=== PATIENT | female | born 1945 | race African-American/Black ===

== ENCOUNTER → 2017-02-27 13:07 | Outpatient (CLI) | payer MEDICARE | END | disposition home or self-care (01) | LOC: D.CT 13:07 | DX: D72.829 Elevated white blood cell count, unspecified (principal) ==

== ENCOUNTER 2017-03-06 20:01 | Emergency (ER) | payer MEDICARE ==
[2017-03-06 21:13] LABS: BASOPHILS 0.1 % (0-2); EOSINOPHILS 0.2 % (0-7); HEMATOCRIT 34.1 % (36.0-48.0); HEMOGLOBIN 10.4 g/dL (12-16); IMMATURE GRANULOCYTES 0.6 % (0-5); LYMPHOCYTES 11.8 % (15-50); MCH 22.3 pg (26.0-34.0); MCHC 30.5 g/dL (31.0-37.0); MCV 73.2 fL (80.0-100.0); MEAN PLATELET VOLUME 8.8 fL (7.4-10.4); MONOCYTES 5.5 % (2-11); NEUTROPHILS 81.8 % (40-80); PLATELET COUNT 438 10x3/uL (130-400); RBC 4.66 10x6/uL (4.00-5.40); RDW 16.8 % (11.5-14.5)
[2017-03-06 21:19] LABS: APTT 25.7 SECONDS (22.8-39.4)
[2017-03-06 21:25] LABS: ALBUMIN 3.5 g/dL (3.4-5.0); ANION GAP 14.3 mmol/L (8-16); BILIRUBIN - TOTAL 0.21 mg/dL (0.2-1.3); CALCIUM 9.2 mg/dL (8.5-10.1); CARBON DIOXIDE 29.9 mmol/L (21.0-32.0); CREATININE - SERUM 1.3 mg/dL (0.6-1.3); POTASSIUM - SERUM 3.2 mmol/L (3.5-5.1)
[2017-03-06 21:44] LABS: INR 0.98 (0.85-1.17); PROTIME 12.8 SECONDS (11.6-15.0)
== END 2017-03-06 22:20 | disposition home or self-care (01) ==
LOC: D.ER 20:01
PROVIDERS: Emergency Medicine
DX: R19.7 Diarrhea, unspecified (principal); T50.905A Adverse effect of unspecified drugs, medicaments and biological substances, initial encounter; Y92.89 Other specified places as the place of occurrence of the external cause; J06.9 Acute upper respiratory infection, unspecified; I10 Essential (primary) hypertension; C50.919 Malignant neoplasm of unspecified site of unspecified female breast; C67.9 Malignant neoplasm of bladder, unspecified; J44.9 Chronic obstructive pulmonary disease, unspecified; C34.90 Malignant neoplasm of unspecified part of unspecified bronchus or lung

== ENCOUNTER → 2017-07-04 15:18 | Outpatient (CLI) | payer MEDICARE | END | disposition home or self-care (01) | LOC: D.CT 07-03 13:30 | DX: R91.8 Other nonspecific abnormal finding of lung field (principal) ==

== ENCOUNTER → 2019-04-01 13:13 | Outpatient (CLI) | payer MEDICARE | END | disposition home or self-care (01) | LOC: D.RT 13:13 | PROVIDERS: ATTEND Internal Medicine Pulmonary Disease | DX: J44.9 Chronic obstructive pulmonary disease, unspecified (principal) ==

== ENCOUNTER 2019-08-27 09:48 | Emergency (ER) | payer MEDICARE ==
[~2019-08-27] VITALS: Ht 167.6 cm; Wt 98.2 kg
[2019-08-27 09:59] VITALS: Ht 167.6 cm; Wt 98.2 kg
[2019-08-27] MEDS ORDERED: TENORMIN50 MG PO (10:00)
[2019-08-27] MEDS ORDERED: ESTRACE 0.5 MG0.5 MG PO (10:01)
[2019-08-27] MEDS ORDERED: COZAAR25 MG PO (10:01)
[2019-08-27] MEDS ORDERED: TEGRETOL200 MG PO (10:01)
[2019-08-27 10:39] LABS: BASOPHILS 0.1 % (0-2); EOSINOPHILS 3.1 % (0-7); HEMATOCRIT 42.3 % (36.0-48.0); HEMOGLOBIN 13.7 g/dL (12-16); IMMATURE GRANULOCYTES 0.3 % (0-5); LYMPHOCYTES 7.9 % (15-50); MCH 28.2 pg (26.0-34.0); MCHC 32.4 g/dL (31.0-37.0); MCV 87.2 fL (80.0-100.0); MEAN PLATELET VOLUME 8.9 fL (7.4-10.4); MONOCYTES 6.1 % (2-11); NEUTROPHILS 82.5 % (40-80); RBC 4.85 10x6/uL (4.00-5.40); WBC 15.4 10x3/uL (4.8-10.8)
[2019-08-27 10:44] LABS: PLATELET COUNT 289 10x3/uL (130-400)
[2019-08-27 10:46] LABS: ANION GAP 13.8 mmol/L (8-16); CALCIUM 8.9 mg/dL (8.5-10.1); CARBON DIOXIDE 28.2 mmol/L (21.0-32.0); CREATININE - SERUM 0.9 mg/dL (0.6-1.3)
[2019-08-27 10:54] LABS: ALBUMIN 3.2 g/dL (3.4-5.0); BILIRUBIN - TOTAL 0.39 mg/dL (0.2-1.3); PROTEIN - SERUM 7.4 g/dL (6.4-8.2)
[2019-08-27 11:36] VITALS: BP 145/68
== END 2019-08-27 11:36 | disposition home or self-care (01) ==
LOC: D.ER 09:48
PROVIDERS: Family Medicine
DX: I10 Essential (primary) hypertension (principal); G50.0 Trigeminal neuralgia; J44.9 Chronic obstructive pulmonary disease, unspecified

== ENCOUNTER → 2019-09-10 10:16 | Outpatient (CLI) | payer MEDICARE ==
[2019-08-27 09:59] VITALS: BMI 34.9
[~2019-09-10 10:16] MED LIST: COZAAR25 MG PO; ESTRACE 0.5 MG0.5 MG PO; TEGRETOL200 MG PO; TENORMIN50 MG PO
== END | disposition home or self-care (01) ==
LOC: D.CT 10:16
PROVIDERS: ATTEND Internal Medicine Pulmonary Disease
DX: R91.8 Other nonspecific abnormal finding of lung field (principal)

== ENCOUNTER → 2019-09-18 17:37 | Outpatient (CLI) | payer MEDICARE ==
[2019-08-27 09:59] VITALS: BMI 34.9
== END | disposition home or self-care (01) ==
LOC: D.LABREF 17:37
PROVIDERS: ATTEND Urology
DX: R82.90 Unspecified abnormal findings in urine (principal); R31.9 Hematuria, unspecified

== ENCOUNTER → 2019-10-11 14:03 | Outpatient (CLI) | payer OTHER ==
[2019-08-27 09:59] VITALS: BMI 34.9
== END | disposition home or self-care (01) ==
LOC: D.CT 14:03
PROVIDERS: ATTEND Urology
DX: R31.9 Hematuria, unspecified (principal); Z53.9 Procedure and treatment not carried out, unspecified reason

== ENCOUNTER → 2020-06-26 14:48 | Outpatient (CLI) | payer MEDICARE ==
[2019-08-27 09:59] VITALS: BMI 34.9
== END | disposition home or self-care (01) ==
LOC: D.CT 14:48
PROVIDERS: ATTEND Internal Medicine Pulmonary Disease
DX: R19.00 Intra-abdominal and pelvic swelling, mass and lump, unspecified site (principal)

== ENCOUNTER 2021-01-25 14:45 | Inpatient (IN) | payer MEDICARE ==
[~2021-01-25] VITALS: Ht 167.6 cm; Wt 81.6 kg
[2021-01-25] MEDS ORDERED: NORVASC10 MG PO (15:11)
[2021-01-25 15:38] LABS: BASOPHILS 0.1 % (0-2); EOSINOPHILS 1.3 % (0-7); HEMATOCRIT 41.5 % (36.0-48.0); HEMOGLOBIN 13.6 g/dL (12-16); IMMATURE GRANULOCYTES 0.8 % (0-5); LYMPHOCYTE ABS# 1.69 10x3/uL (1.18-3.74); LYMPHOCYTES 10.1 % (15-50); MCH 27.9 pg (26.0-34.0); MCHC 32.8 g/dL (31.0-37.0); MCV 85.2 fL (80.0-100.0); MEAN PLATELET VOLUME 8.8 fL (7.4-10.4); MONOCYTES 7.7 % (2-11); NEUTROPHIL ABS# 13.37 10x3/uL (1.56-6.13); RBC 4.87 10x6/uL (4.00-5.40); RDW 13.4 % (11.5-14.5); WBC 16.7 10x3/uL (4.8-10.8)
[2021-01-25 15:39] LABS: BILIRUBIN NEGATIVE (NEGATIVE); KETONE NEGATIVE (NEGATIVE); NITRITE NEGATIVE (NEGATIVE); UROBILINOGEN NORMAL mg/dL (< 2)
[2021-01-25 15:39] LABS: PLATELET COUNT 418 10x3/uL (130-400)
[2021-01-25 15:43] LABS: WHITE CELLS - URINE >50 HPF (0-4)
[2021-01-25 15:44] LABS: BACTERIA MODERATE HPF (NONE SEEN); SQUAMOUS EPITHELIAL 0-5 HPF (0-4)
[2021-01-25 15:54] LABS: APTT 28.8 SECONDS (22.8-39.4); INR 1.13 (0.85-1.17); PROTIME 13.4 SECONDS (11.6-15.0)
[2021-01-25 15:55] LABS: CALC OSMOLALITY 280 mosm/kg (275-300); CALCIUM 9.6 mg/dL (8.5-10.1); CARBON DIOXIDE 27.5 mmol/L (21.0-32.0); CHLORIDE - SERUM 102 mmol/L (98-107); GLUCOSE 86 mg/dL (74-106); POTASSIUM - SERUM 3.4 mmol/L (3.5-5.1); SODIUM 141 mmol/L (136-145); UREA NITROGEN 16 mg/dL (7-18); eGFR NON AFRICAN AMERICAN 57 mL/min (90-120)
[2021-01-25 16:00] VITALS: BP 147/68
[2021-01-25 16:03] LABS: ALBUMIN 3.3 g/dL (3.4-5.0); ALKALINE PHOSPHATASE 128 U/L (30-120); ALT (SGPT) 14 U/L (10-68); AMYLASE - SERUM 50 U/L (25-115); LIPASE 57 U/L (73-393); PROTEIN - SERUM 7.5 g/dL (6.4-8.2)
[2021-01-25 16:08] LABS: TROPONIN-I < 0.017 ng/mL (0.000-0.060)
[2021-01-25 17:00] VITALS: BP 119/50
[2021-01-25 17:30] VITALS: BP 112/54
--- NOTE | 2021-01-25 19:00 | NUR ---
REPORT TO ONCOMING SHIFT.
[2021-01-25 19:27] VITALS: BP 131/55
[2021-01-25 21:27] VITALS: BP 124/42
[2021-01-25] MEDS ORDERED: PROVENTIL/2.5 MG/3 M INH (22:46)
[2021-01-25] MEDS ORDERED: PULMICORT0.5 MG/21 INH (22:47)
[2021-01-25] MEDS ORDERED: ALBUTEROL SULF8.5 GM INH (22:48)
[2021-01-25] MEDS ORDERED: NEURONTIN 300300 MG PO (22:49)
[2021-01-26 00:55] VITALS: BP 155/65; BMI 29.1
[2021-01-26 05:46] LABS: BASOPHILS 0.1 % (0-2); EOSINOPHILS 1.2 % (0-7); HEMATOCRIT 35.7 % (36.0-48.0); HEMOGLOBIN 11.6 g/dL (12-16); IMMATURE GRANULOCYTES 0.3 % (0-5); LYMPHOCYTE ABS# 1.06 10x3/uL (1.18-3.74); LYMPHOCYTES 7.4 % (15-50); MCH 27.6 pg (26.0-34.0); MCHC 32.5 g/dL (31.0-37.0); MCV 84.8 fL (80.0-100.0); MEAN PLATELET VOLUME 8.4 fL (7.4-10.4); MONOCYTES 6.6 % (2-11); NEUTROPHIL ABS# 12.16 10x3/uL (1.56-6.13); NEUTROPHILS 84.4 % (40-80); RBC 4.21 10x6/uL (4.00-5.40); RDW 13.5 % (11.5-14.5); WBC 14.4 10x3/uL (4.8-10.8)
[2021-01-26 06:00] LABS: PLATELET COUNT 307 10x3/uL (130-400)
[2021-01-26 06:19] LABS: ALBUMIN 2.6 g/dL (3.4-5.0); ALKALINE PHOSPHATASE 177 U/L (30-120); BILIRUBIN - TOTAL 0.38 mg/dL (0.2-1.3); CALC OSMOLALITY 277 mosm/kg (275-300); CALCIUM 8.6 mg/dL (8.5-10.1); CARBON DIOXIDE 23.2 mmol/L (21.0-32.0); CHLORIDE - SERUM 105 mmol/L (98-107); GLUCOSE 78 mg/dL (74-106); PROTEIN - SERUM 6.2 g/dL (6.4-8.2); SODIUM 140 mmol/L (136-145); UREA NITROGEN 12 mg/dL (7-18)
[2021-01-26 06:20] LABS: ALT (SGPT) 21 U/L (10-68); CREATININE - SERUM 0.7 mg/dL (0.6-1.3); eGFR NON AFRICAN AMERICAN 86 mL/min (90-120)
[2021-01-26 08:19] VITALS: BP 95/62
[2021-01-26 09:22] VITALS: BP 138/81
--- NOTE | 2021-01-26 09:45 | NUR ---
PT RECEIVED AWAKE SITTING ON SIDE OF BED. MEDS GIVEN WITH SIP. PRODUCT ENGINEER FOR PAIN. DENIES NAUSEA.
[2021-01-26 13:24] VITALS: BP 117/63
[2021-01-26 14:02] VITALS: BMI 29.0
--- NOTE | 2021-01-26 14:30 | CN ---
PATIENT NAME:ZOILA FLOYD MEDICAL RECORD: [id number] : 45 LOCATION:D.M2 D.2127 ADMIT DATE: 01/25/21 ACCOUNT: [id number] CONSULTING PHYSICIAN: CATE MCCOLLUM MD REFERRING PHYSICIAN: ANKUR FREEDMAN MD DATE OF CONSULTATION: 01/25/2021 CHIEF COMPLAINT: Abdominal pain. HISTORY OF PRESENT ILLNESS: The patient has been seen by my surgery group in the past. I do not know who saw her, but she was referred to [facility]. She has seen a surgeon there, who is following her for a large left-sided abdominal mass, which appears to contain fat. She is going to continue to followup with that surgeon. 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 The patient has been having diarrhea and also left-sided abdominal pain. She appears to have diverticulitis. She has also had some vaginal discharge. She states that her stools are yellow. She does not have a primary care provider. Symptoms came on gradually and have been present for weeks. They are generalized, but worse in the left lower quadrant. Severity is mild. Palpation aggravates. Nothing alleviates. REVIEW OF SYSTEMS: All the review of systems are negative other than as described above. The patient has had nausea and diarrhea as well as abdominal pain. ALLERGIES: CEFDINIR WHICH CAUSES DIARRHEA. HOME MEDICATIONS: Atenolol, Tegretol, Norvasc. PAST MEDICAL AND SURGICAL HISTORY: Diverticulitis, abdominal lipoma, hysterectomy. SOCIAL HISTORY: Does not smoke. Vital signs reviewed and labs reviewed. PHYSICAL EXAMINATION: GENERAL: The patient does not appear acutely ill. She does not appear chronically ill. VITAL SIGNS: Reviewed. EARS: External ears appear normal. EYES: Extraocular movements are intact. NECK: Trachea is midline. CHEST: No intercostal retractions. PULMONARY: Nonlabored. No stridor. ABDOMEN: Left-sided abdominal mass. Tenderness in the left side of the abdomen. There is peritonitis to percussion. EXTREMITIES: No peripheral cyanosis. DIAGNOSTIC DATA: I personally reviewed the CT images. I personally reviewed the CT report. She has had a prior PET scan as well. Findings were consistent with acute diverticulitis with an intramural abscess, so we would not want to drain that abscess at this time. There is also a left CONSULT REPORT [id number] ZOILA FLOYD adrenal nodule. IMPRESSION: Acute diverticulitis. PLAN: N.p.o., except ice chips and sips of water. IV antibiotics. Serial abdominal examinations. TRANSINT:[id number] Voice Confirmation ID: [id number] DOCUMENT ID: [id number] CATE MCCOLLUM MD at 1430 CC: [id number] DICTATION DATE: 01/25/211927 SENIOR MARKETING COORDINATOR: 01/26/21 0014 ADM IN [facility] [address] [id number]
[2021-01-26 16:19] VITALS: BP 127/55
[2021-01-26 20:00] VITALS: BP 125/51
[2021-01-26 22:02] VITALS: Ht 167.6 cm; Wt 81.6 kg
[2021-01-27] VITALS: BP 104/51
[2021-01-27 04:00] VITALS: BP 113/52
--- NOTE | 2021-01-27 05:46 | NUR ---
I have reviewed this patient and I concur with the Shift Assessment completed by the Licensed Practical Nurse today this shift.
[2021-01-27 05:50] LABS: BASOPHILS 0 % (0-2); EOSINOPHILS 0.1 % (0-7); HEMATOCRIT 33.8 % (36.0-48.0); HEMOGLOBIN 10.8 g/dL (12-16); IMMATURE GRANULOCYTES 0.6 % (0-5); LYMPHOCYTE ABS# 0.98 10x3/uL (1.18-3.74); MCH 27.3 pg (26.0-34.0); MCV 85.6 fL (80.0-100.0); MEAN PLATELET VOLUME 8.7 fL (7.4-10.4); MONOCYTES 3.1 % (2-11); NEUTROPHILS 89.2 % (40-80); PLATELET COUNT 312 10x3/uL (130-400); RBC 3.95 10x6/uL (4.00-5.40); RDW 13.3 % (11.5-14.5); WBC 13.9 10x3/uL (4.8-10.8)
[2021-01-27 06:25] LABS: ALBUMIN 2.5 g/dL (3.4-5.0); ALKALINE PHOSPHATASE 166 U/L (30-120); ALT (SGPT) 21 U/L (10-68); BILIRUBIN - TOTAL 0.21 mg/dL (0.2-1.3); CALC OSMOLALITY 278 mosm/kg (275-300); CALCIUM 8.4 mg/dL (8.5-10.1); CARBON DIOXIDE 25.4 mmol/L (21.0-32.0); CHLORIDE - SERUM 106 mmol/L (98-107); CREATININE - SERUM 0.7 mg/dL (0.6-1.3); GLUCOSE 93 mg/dL (74-106); POTASSIUM - SERUM 3.4 mmol/L (3.5-5.1); PROTEIN - SERUM 5.8 g/dL (6.4-8.2); SODIUM 140 mmol/L (136-145); UREA NITROGEN 12 mg/dL (7-18); eGFR NON AFRICAN AMERICAN 86 mL/min (90-120)
--- NOTE | 2021-01-27 07:00 | NUR ---
PT LYING IN BED. RESP EVEN AND UNLABORED. AAOX4. [address] LPM [address] NC IN PL[address]. PT DENIES NEEDS AT THIS TIME. CLIR. BED IN LOWEST POSITION. SIDE RAILS X2. SCDS IN PLACE
[2021-01-27 08:17] VITALS: BP 110/53
[2021-01-27 11:40] VITALS: BP 103/38
[2021-01-27 16:14] VITALS: BP 109/41
--- NOTE | 2021-01-27 16:31 | NUR ---
I have reviewed this patient and I concur with the Shift Assessment completed by the Licensed Practical Nurse today this shift.
[2021-01-27 20:00] VITALS: BP 110/50
--- NOTE | 2021-01-27 20:42 | NUR ---
PT UP AD LAURA IN ROOM. PLEASANT & COOPERATIVE. DR GAYTAN ROUNDING AT PRESENT. I DID VISUALIZE THE VAGINAL DRAINAGE, APPEARS GREENISH/BROWN & MUCUS LIKE. STATES THAT SHE IS FEELING A LITTLE BETTER TODAY WILL CONTINUE TO MONITOR.
[2021-01-28] VITALS: BP 117/51
[2021-01-28 04:00] VITALS: BP 124/62
[2021-01-28 06:37] LABS: BASOPHILS 0 % (0-2); EOSINOPHILS 0.3 % (0-7); HEMATOCRIT 34.7 % (36.0-48.0); HEMOGLOBIN 11.1 g/dL (12-16); IMMATURE GRANULOCYTES 0.5 % (0-5); LYMPHOCYTE ABS# 0.85 10x3/uL (1.18-3.74); LYMPHOCYTES 5.7 % (15-50); MCH 27.5 pg (26.0-34.0); MCV 85.9 fL (80.0-100.0); MEAN PLATELET VOLUME 8.6 fL (7.4-10.4); NEUTROPHIL ABS# 13.25 10x3/uL (1.56-6.13); NEUTROPHILS 88.5 % (40-80); PLATELET COUNT 327 10x3/uL (130-400); RBC 4.04 10x6/uL (4.00-5.40); RDW 13.6 % (11.5-14.5)
[2021-01-28 06:39] LABS: ALBUMIN 2.5 g/dL (3.4-5.0); ALKALINE PHOSPHATASE 142 U/L (30-120); ALT (SGPT) 20 U/L (10-68); BILIRUBIN - TOTAL 0.21 mg/dL (0.2-1.3); CALC OSMOLALITY 278 mosm/kg (275-300); CALCIUM 8.3 mg/dL (8.5-10.1); CARBON DIOXIDE 27.4 mmol/L (21.0-32.0); CHLORIDE - SERUM 107 mmol/L (98-107); CREATININE - SERUM 0.6 mg/dL (0.6-1.3); GLUCOSE 96 mg/dL (74-106); POTASSIUM - SERUM 3.6 mmol/L (3.5-5.1); PROTEIN - SERUM 5.7 g/dL (6.4-8.2); SODIUM 141 mmol/L (136-145); eGFR NON AFRICAN AMERICAN > 90 mL/min (90-120)
[2021-01-28 06:40] LABS: UREA NITROGEN 8 mg/dL (7-18)
--- NOTE | 2021-01-28 07:00 | NUR ---
Sitting up in bed talking on the phone, awake/alert/oriented, T/R self ad nazario, cont of B/B with BRPs per self ad nazario, denies pain/other discomfort at this time, call light/phone/water within reach, no s/s of acute distress observed.
[2021-01-28 07:58] VITALS: BP 133/63
[2021-01-28 11:12] VITALS: BP 136/59
[2021-01-28 14:49] VITALS: BP 119/58
[2021-01-28 19:29] VITALS: BP 131/60
[2021-01-29 03:44] VITALS: BP 133/66
--- NOTE | 2021-01-29 06:02 | NUR ---
0100-*- PT IV WENT BAD TO RIGHT FOREARM. PT RESTING QUIETLY BY THE TIME I GOT IN THERE TO START A NEW ONE. SHE ASKED TO WAIT UNTIL LATER ON SO THAT SHE COULD GET SOME REST. 0500--20G IV STARTED TO LEFT FOREARM X1 ATTEMPT. FLUSHES EASILY. IVF RESTARTED, ANTIBIOTICS STARTED ALONG WITH CASE FINISHING MACHINE ADJUSTER MORPHINE
[2021-01-29 06:31] LABS: BASOPHILS 0 % (0-2); EOSINOPHILS 0.8 % (0-7); HEMOGLOBIN 12.3 g/dL (12-16); IMMATURE GRANULOCYTES 0.7 % (0-5); LYMPHOCYTE ABS# 0.88 10x3/uL (1.18-3.74); LYMPHOCYTES 6.1 % (15-50); MCH 27.6 pg (26.0-34.0); MCHC 32.4 g/dL (31.0-37.0); MCV 85.4 fL (80.0-100.0); MONOCYTES 6.8 % (2-11); NEUTROPHIL ABS# 12.29 10x3/uL (1.56-6.13); NEUTROPHILS 85.6 % (40-80); PLATELET COUNT 347 10x3/uL (130-400); RBC 4.45 10x6/uL (4.00-5.40); RDW 13.6 % (11.5-14.5); WBC 14.4 10x3/uL (4.8-10.8)
[2021-01-29 07:03] LABS: ALBUMIN 2.8 g/dL (3.4-5.0); ALKALINE PHOSPHATASE 148 U/L (30-120); ALT (SGPT) 21 U/L (10-68); BILIRUBIN - TOTAL 0.17 mg/dL (0.2-1.3); CALCIUM 8.8 mg/dL (8.5-10.1); CARBON DIOXIDE 30.4 mmol/L (21.0-32.0); CHLORIDE - SERUM 105 mmol/L (98-107); CREATININE - SERUM 0.6 mg/dL (0.6-1.3); GLUCOSE 92 mg/dL (74-106); PROTEIN - SERUM 6.5 g/dL (6.4-8.2); SODIUM 142 mmol/L (136-145); eGFR NON AFRICAN AMERICAN > 90 mL/min (90-120)
[2021-01-29 07:04] LABS: CALC OSMOLALITY 279 mosm/kg (275-300); UREA NITROGEN 4 mg/dL (7-18)
--- NOTE | 2021-01-29 07:10 | NUR ---
Sitting up in bed, awake/alert/oriented, T/R self ad nazario, cont of B/B with BRPs per self ad nazario, denies pain/other discomfort at this time, call light/phone/water within reach, no s/s of acute distress observed.
[2021-01-29 09:10] VITALS: BP 124/43
[2021-01-29 12:59] VITALS: BP 104/56
--- NOTE | 2021-01-29 13:28 | NUR ---
Nutrition Follow-up: On clear liquids since 01/27; tolerating. Denies N/V. C/o yellow diarrhea but reports that it is improving. Requests solids. Agreed to try clear Ensure @ lunch today. Diet: Clear Liquids Wt: 180# (01/27) Labs noted: K+ 3.0, Alb 2.8 Meds noted: Protonix, NS @ 125, electrolyte protocol -Rec advance diet as tolerated. -Clear Ensure sent with lunch today for pt trial. -Monitor wt. -RD will follow up within 3-4 days.
--- NOTE | 2021-01-29 14:58 | NUR ---
Spoke with Dr. Patterson who told me pt would need to see a specialist for repair and that she had scheduled pt for a follow up visit; Dr. Patterson also stated she had appended a note to this effect.
--- NOTE | 2021-01-29 15:37 | NUR ---
Discontinued IV access/cardiac telemetry monitoring, cont waiting for ride to arrive, call light/phone/water within reach, no s/s of acute distress observed.
[2021-01-29 16:43] VITALS: BP 127/57
[2021-01-29 20:58] VITALS: BP 129/63
[2021-01-29 23:29] VITALS: BP 92/50
--- NOTE | 2021-01-30 02:57 | NUR ---
ASSESSED AT THE BEGINNING OF THE SHIFT. PT IS ALERT AND ORIENTED, ABLE TO VERBALZIE NEEDS. HER PRODUCT SUPPORT REP HAD RUN OUT AND A NEW ONE WAS ORDERED AND OBTAINED. SHE IS EXPERIENCING ABD PAIN AND HR PRODUCT SUPPORT REP IS KEEPING IT WHERE SHE CAN HANDLE IT. SHE IS UP TO THE BATHROOM AD LAURA, DOZING FREQUENTLY.
[2021-01-30 03:45] VITALS: BP 130/60
[2021-01-30 06:27] LABS: BASOPHILS 0.2 % (0-2); EOSINOPHILS 2.5 % (0-7); HEMOGLOBIN 12.6 g/dL (12-16); IMMATURE GRANULOCYTES 0.7 % (0-5); LYMPHOCYTE ABS# 1.52 10x3/uL (1.18-3.74); LYMPHOCYTES 11.6 % (15-50); MCH 27.8 pg (26.0-34.0); MCHC 32.3 g/dL (31.0-37.0); MCV 86.1 fL (80.0-100.0); MEAN PLATELET VOLUME 8.8 fL (7.4-10.4); MONOCYTES 8.3 % (2-11); NEUTROPHIL ABS# 10.04 10x3/uL (1.56-6.13); NEUTROPHILS 76.7 % (40-80); PLATELET COUNT 332 10x3/uL (130-400); RBC 4.53 10x6/uL (4.00-5.40); RDW 13.9 % (11.5-14.5); WBC 13.1 10x3/uL (4.8-10.8)
[2021-01-30 06:56] LABS: ALBUMIN 2.6 g/dL (3.4-5.0); ALKALINE PHOSPHATASE 136 U/L (30-120); ALT (SGPT) 21 U/L (10-68); CALC OSMOLALITY 278 mosm/kg (275-300); CALCIUM 8.5 mg/dL (8.5-10.1); CARBON DIOXIDE 30.3 mmol/L (21.0-32.0); CHLORIDE - SERUM 106 mmol/L (98-107); CREATININE - SERUM 0.7 mg/dL (0.6-1.3); GLUCOSE 83 mg/dL (74-106); POTASSIUM - SERUM 3.4 mmol/L (3.5-5.1); PROTEIN - SERUM 5.9 g/dL (6.4-8.2); SODIUM 142 mmol/L (136-145); UREA NITROGEN 4 mg/dL (7-18); eGFR NON AFRICAN AMERICAN 86 mL/min (90-120)
[2021-01-30 07:49] VITALS: BP 106/64
[2021-01-30 11:55] VITALS: BP 131/56
[2021-01-30 15:46] VITALS: BP 114/47
--- NOTE | 2021-01-30 19:56 | NUR ---
INITIAL ROUNDS COMPLETED AT 1920 HRS. PT DENIED ANY DISCOMFORT. ASSESSMENT COMPLETED AT 1950 HRS. SR PER CM HR 78. ALERT AND ORIENTED TO PERSON,PLACE AND TIME. CARIAS. PALPABLE PERIPHERSL PULSES. IV TO LAC WITH NS AT 125CC/HR AND MORPHINE DENTAL ASSISTING INSTRUCTOR 1MG/Q10 MINUTES WITH 10MG/Q4HR LO. IV PATENT. O2 4LNC. LUNGS DIMINISHED IN BASES BILAT. ABD LARGE, SOFT WITH HYPOACTIVE BS NOTED. SCD'S IN USE. SCD'S REMOVED AND SKIN INSPECTED. NO BREAKDOWN NOTED. ORANGE SHERPAULINO X2 GIVEN PER REQUEST. SR UP X2, CALL LIGHT WITHIN REACH.
[2021-01-30 20:30] VITALS: BP 137/65
--- NOTE | 2021-01-30 21:07 | NUR ---
PM MEDS GIVEN. PT STATES MORPHINE KINDERGARTEN TUTOR CONTROLLING HER PAIN. SR UP X1, CALL LIGHT WITHIN REACH.
--- NOTE | 2021-01-30 22:29 | NUR ---
PT REDTING WITH EYES CLOSED. RESP EVEN AND REGULAR. CALL LIGHT WITHIN REACH.
--- NOTE | 2021-01-31 00:12 | NUR ---
PT AWAKE; DENIES ANY DISCOMFORT. CALL LIGHT WITHIN REACH.
[2021-01-31 00:30] VITALS: BP 104/52
--- NOTE | 2021-01-31 04:18 | NUR ---
PT AWAKE; DENIES ANY DISCOMFORT. CALL LIGHT WITHIN REACH.
[2021-01-31 04:30] VITALS: BP 114/58
[2021-01-31 05:58] LABS: BASOPHILS 0.1 % (0-2); EOSINOPHILS 2.6 % (0-7); HEMATOCRIT 37.4 % (36.0-48.0); HEMOGLOBIN 11.8 g/dL (12-16); IMMATURE GRANULOCYTES 0.7 % (0-5); LYMPHOCYTE ABS# 1.12 10x3/uL (1.18-3.74); LYMPHOCYTES 10.1 % (15-50); MCH 27.3 pg (26.0-34.0); MCHC 31.6 g/dL (31.0-37.0); MCV 86.4 fL (80.0-100.0); MEAN PLATELET VOLUME 8.9 fL (7.4-10.4); MONOCYTES 8.9 % (2-11); NEUTROPHIL ABS# 8.62 10x3/uL (1.56-6.13); NEUTROPHILS 77.6 % (40-80); PLATELET COUNT 280 10x3/uL (130-400); RBC 4.33 10x6/uL (4.00-5.40); RDW 13.7 % (11.5-14.5); WBC 11.1 10x3/uL (4.8-10.8)
--- NOTE | 2021-01-31 06:25 | NUR ---
VSS THROUGHOUT NIGHT. DENIED ANY N/V. NEEDS MET; WILL CONTINUE TO MONITOR.
[2021-01-31 07:13] LABS: CALC OSMOLALITY 275 mosm/kg (275-300); CALCIUM 8.3 mg/dL (8.5-10.1); CARBON DIOXIDE 29.8 mmol/L (21.0-32.0); CHLORIDE - SERUM 105 mmol/L (98-107); CREATININE - SERUM 0.6 mg/dL (0.6-1.3); GLUCOSE 83 mg/dL (74-106); POTASSIUM - SERUM 3.5 mmol/L (3.5-5.1); SODIUM 141 mmol/L (136-145); eGFR NON AFRICAN AMERICAN > 90 mL/min (90-120)
[2021-01-31 07:20] LABS: UREA NITROGEN 2 mg/dL (7-18)
[2021-01-31 08:43] VITALS: BP 129/36
[2021-01-31 12:02] VITALS: BP 113/37
--- NOTE | 2021-01-31 12:38 | NUR ---
PT'S IV LEAKING SO REMOVED AND DSG PLACED. SHE HAS BEEN SWITCHED TO ORAL ANITIBIOTICS AND PAIN MEDS SO WILL LEAVE OUT FOR NOW.
[2021-01-31 16:05] VITALS: BP 113/41
--- NOTE | 2021-01-31 19:23 | NUR ---
INITIAL ROUNDS COMPLETED AT 191 HRS. PT UP IN BATHROOM. PT DENIES ANY DISCOMFORT.
[2021-01-31 20:00] VITALS: BP 128/60
--- NOTE | 2021-01-31 22:50 | NUR ---
ASSESSMENT COMPELTED AT 2009 HRS. VSS. SR PER CM HR 81. ALERT AND ORIENTED TO PERSON, PLACE AND TIME. CARIAS. NO IV ACCESS. O2 2LNC. LINGS DIMINISHED IN BASES BILAT. ABD LARGE, SOFT WITH ACTIVE BS NOTED. PM MEDS GIVEN INCLUDING NORCO FOR C/O ABD DEYSI. PT CURRENTLY RESTING WITH EYES CLOSED. RESP EVEN AND REGULAR. SR UPX1, CALL LIGHT WITHIN REACH.
--- NOTE | 2021-01-31 23:39 | NUR ---
VSS. NO DISTRESS NOTED. SR UP X1,CALL LIGHT WITHIN REACH.
[2021-02-01] VITALS: BP 113/65
--- NOTE | 2021-02-01 02:02 | NUR ---
PT RESTING WITH EYES CLOSED. RESP EVEN AND REGULAR. SR UP X1, CALL LIGHT WITHIN REACH.
[2021-02-01 04:00] VITALS: BP 115/53
--- NOTE | 2021-02-01 04:07 | NUR ---
AWAKES TO VERBAL STIMULI. NO DISTRESS NOTED. CALL [facility] WITHIN REACH.
--- NOTE | 2021-02-01 05:46 | NUR ---
VSS THROUGHOUT NIGHT. SR PER CM. PT STATED NORCO CONTROLLED HERPAIN. NEEDS MET; WILL CONTINUE TO MONITOR.
[2021-02-01 08:44] VITALS: BP 132/54
[2021-02-01 11:27] VITALS: BP 113/48
--- NOTE | 2021-02-01 12:26 | NUR ---
ASSUMED CARE OF PT. IN BED, ON ORAL MEDS WITH NO IV IN PLACE.
[2021-02-01 16:00] VITALS: BP 113/58
[2021-02-01] MEDS ORDERED: FLAGYL500 MG PO (17:18)
[2021-02-01] MEDS ORDERED: LEVAQUIN750 MG PO (17:18)
[2021-02-01] MEDS ORDERED: HYDROCODON-ACE1 EA10 PO (17:18)
[2021-02-01] MEDS ORDERED: PROTONIX40 MG PO (17:19)
[2021-02-01 20:00] VITALS: BP 107/42
--- NOTE | 2021-02-01 21:42 | NUR ---
NORCO 1 TAB GIVEN FOR C/O ABD, RATES PAIN AT A 7 ON PAIN SCALE.
--- NOTE | 2021-02-01 22:53 | NUR ---
IN BED WATCHING TV, STATES THAT ABD PAIN IS BETTER, NOW RATES PAIN AT A 3 ON PAIN SCALE.
[2021-02-02 00:01] VITALS: BP 125/53
--- NOTE | 2021-02-02 01:29 | NUR ---
I have reviewed this patient and I concur with the Shift Assessment completed by the Licensed Practical Nurse today this shift.
--- NOTE | 2021-02-02 03:13 | NUR ---
RESTING WITH EYES CLOSED, NO S/S DISTRESS NOTED.
[2021-02-02 04:30] VITALS: BP 110/35
--- NOTE | 2021-02-02 07:15 | NUR ---
RECEIVE SHIFT REPORT. DISHCARGE ORDER IN SINCE YESTERDAY AND PAPERWORK IN CHART. STATES SHE NEEDS TO CALL A [employer]. WILL CONTINUE POC UNTIL DISCHARGED.
[2021-02-02 08:10] VITALS: BP 126/56
--- NOTE | 2021-02-02 10:55 | NUR ---
[employer] CALLED, AWAITING TAXI. DISCHARGE INSTRUCTIONS GIVEN VERBALLY AND HANDOUTS PROVIDED. NO IV. TELEMETRY OFF.
--- NOTE | 2021-02-02 11:31 | NUR ---
TAKEN DOWN TO MAIN ENTRANCE VIA WHEELCHAIR.
== END 2021-02-02 11:32 | disposition home or self-care (01) | DRG 392 ==
LOC: D.ER 14:45 → D.M2 20:56
PROVIDERS: Family Medicine; Legal Medicine; ADMIT Emergency Medicine; ATTEND Emergency Medicine
DX: K57.20 Diverticulitis of large intestine with perforation and abscess without bleeding (principal); N39.0 Urinary tract infection, site not specified; N82.4 Other female intestinal-genital tract fistulae; C48.0 Malignant neoplasm of retroperitoneum; I10 Essential (primary) hypertension; D17.79 Benign lipomatous neoplasm of other sites; E87.6 Hypokalemia; J43.9 Emphysema, unspecified; Z99.81 Dependence on supplemental oxygen; N63.0 Unspecified lump in unspecified breast; Z85.3 Personal history of malignant neoplasm of breast

== ENCOUNTER → 2021-03-16 14:00 | Outpatient (CLI) | payer MEDICARE ==
[2021-01-26 22:02] VITALS: BMI 29.1
[~2021-03-16 14:00] MED LIST changes: +ALBUTEROL SULF8.5 GM INH; +FLAGYL500 MG PO; +HYDROCODON-ACE1 EA10 PO; +LEVAQUIN750 MG PO; +NEURONTIN 300300 MG PO; +NORVASC10 MG PO; +PROTONIX40 MG PO; +PROVENTIL/2.5 MG/3 M INH; +PULMICORT0.5 MG/21 INH
== END | disposition home or self-care (01) ==
LOC: D.MAMMO 14:00
PROVIDERS: ATTEND Emergency Medicine
DX: Z12.31 Encounter for screening mammogram for malignant neoplasm of breast (principal); Z00.01 Encounter for general adult medical examination with abnormal findings